=== PATIENT | male | born 1945 | race Two or more races ===

== ENCOUNTER 2019-12-24 10:10 | Emergency (ER) | payer OTHER ==
[~2019-12-24] VITALS: Ht 175.3 cm; Wt 77.1 kg
[2019-12-24] MEDS ORDERED: LANTUS SOL100 UNIT/1 (10:30)
[2019-12-24] MEDS ORDERED: COZAAR50 MG (10:46)
[2019-12-24] MEDS ORDERED: PLAVIX75 MG (10:46)
[2019-12-24] MEDS ORDERED: HUMALOG100 UNIT/1 (10:47)
[2019-12-24] MEDS ORDERED: AMLODIPINE-OLM1 EAC2 (10:47)
[2019-12-24] MEDS ORDERED: TOPROL XL25 M1 (10:48)
== END 2019-12-24 16:12 | disposition home or self-care (01) ==
LOC: ER 10:10
DX: R63.0 Anorexia (principal); R53.1 Weakness; Z03.818 Encounter for observation for suspected exposure to other biological agents ruled out